=== PATIENT | male | born 1985 | race Caucasian/White ===

== ENCOUNTER 2020-09-22 15:38 | Emergency (ER) | payer OTHER ==
[~2020-09-22] VITALS: Ht 172.7 cm; Wt 74.8 kg
[2020-09-22] MEDS ORDERED: IBUPROFEN 800800 M1 PO (17:05)
[2020-09-22] MEDS ORDERED: CEPHALEXIN500 MG PO (17:05)
[2020-09-22] MEDS ORDERED: HYDROCODON-ACE1 EAC7 PO (17:12)
[2020-09-22 17:23] VITALS: BP 135/68
== END 2020-09-22 17:24 | disposition home or self-care (01) ==
LOC: M.ERS 15:38
DX: S81.812A Laceration without foreign body, left lower leg, initial encounter (principal); Z88.0 Allergy status to penicillin; Z88.1 Allergy status to other antibiotic agents; W26.8XXA Contact with other sharp object(s), not elsewhere classified, initial encounter; Y93.89 Activity, other specified; Y92.89 Other specified places as the place of occurrence of the external cause; Y99.8 Other external cause status